=== PATIENT | male | born 1950 | race Caucasian/White ===

== ENCOUNTER → 2019-03-22 | Day surgery (SDC) | payer OTHER ==
[~2019-03-22] VITALS: Ht 177.8 cm; Wt 172.4 kg
[~2019-03-22] MED LIST: LISINOPRIL30 MG PO; TRIAMTERENE/HCT1 CA1 PO
--- NOTE | ~2019-03-22 | PROC ---
[address] [address] PROCEDURE REPORT Name: SHERIE HERNANDEZ Room: [facility].#: [id number] Admission: 03/22/19 Attend Phys: Josh Saunders MD Discharge: Date of : 54 Report #: [id number] THIS REPORT FOR: //name// For GI report, please see the Provation report in Perceptive 7 content. By: 06Medical Records Staff BRANDI /ZULLY
[2019-03-22 09:07] LABS: HEMATOCRIT 44.7 % (42.0-52.0); MCH 31.2 pg (26.0-34.0); MCHC 33.5 g/dL (28.0-37.0); MCV 93.3 fL (80.0-100.0); MPV 6.2 fl. (7.2-11.1); RBC 4.79 mil/uL (4.50-6.00); RDW-CV 13.4 % (10.5-14.5); WBC 6.7 thou/uL (4.0-11.0)
[2019-03-22 09:30] LABS: CREATININE 1.1 mg/dL (0.6-1.3); POTASSIUM 4.2 mmol/L (3.5-5.1)
[2019-03-22 09:34] LABS: ALBUMIN 3.4 g/dL (3.4-5.0); TOTAL BILIRUBIN 0.5 mg/dL (<0.1-1.0); TOTAL PROTEIN 7.4 g/dL (6.4-8.2)
--- NOTE | 2019-03-22 17:00 | EKG ---
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
--- NOTE | 2019-03-24 12:06 | PATH ---
[address] [address] [place] [address] PATHOLOGY RPT PROCEDURE Name: SHERIE MARTINEZ Room: [facility].#: [id number] Admission: 03/22/19 Date of : 54 Discharge: Report #: [id number] Path Case #: [id number] [facility] Accession Number: [id number] . 01 Material submitted: . PART A: colon - ASCENDING COLON. Modifiers: ascending PART B: colon - TRANSVERSE COLON POLYP. Modifiers: transverse . 01 Clinical history: . Personal history of colon polyps . 02 Diagnosis: A. Ascending colon: - Multiple fragments of tubular adenoma(s), negative for high-grade dysplasia. . B. Transverse colon polyp: - Tubular adenoma, negative for high-grade dysplasia. (PAVAN:lucy; 03/24/2019) S 03/24/2019 0939 Local . 02 Electronically signed: . Ashwin Camacho MD, Pathologist NPI- [id number] . 01 Gross description: . A. The specimen is received in formalin, labeled "Sherie Martinez, ascending colon". Received are multiple (greater than 10) segments of pale tamayo soft tissue ranging in size from 0.2 to 0.7 cm in maximum dimensions. The surgical margin of the larger segment is inked and the segment is bisected. The specimen is submitted entirely in cassettes A1 and A2, with the bisected segments embedded in cassette A2. . B. The specimen is received in formalin, labeled "Sherie Martinez, transverse colon polyp". Received are two segments of pale tamayo soft tissue ranging in size from 0.2 to 0.3 cm in maximum dimensions. The specimen is submitted entirely in cassette B1. ([facility]; 03/23/2019) QA/[facility] 03/24/2019 0938 Local . 02 Pathologist provided ICD-10: D12.2, D12.3 . 02 CPT . 995663, 255151 Specimen Comment: A courtesy copy of this report has been sent to [phone] Specimen Comment: [phone] [place] [address] PATHOLOGY RPT PROCEDURE Name: SHERIE MARTINEZ Room: [facility]#: [id number] Admission: 03/22/19 Date of : 54 Discharge: Report #: [id number] Path Case #: [id number] Specimen Comment: Report sent to / DR JOLLY Performed at: [address], [place], [place] [id number] MD Umesh Hansen MD Phone: [phone] Performed at: 02 [facility] [address], [place], [place] [id number] MD Ashwin Camacho MD Phone: [phone]
== END | disposition home or self-care (01) ==
LOC: M.SUR 08:19
PROVIDERS: Internal Medicine Gastroenterology
DX: Z12.11 Encounter for screening for malignant neoplasm of colon (principal); Z86.010 Personal history of colon polyps; D12.2 Benign neoplasm of ascending colon; D12.3 Benign neoplasm of transverse colon; K57.30 Diverticulosis of large intestine without perforation or abscess without bleeding; K64.8 Other hemorrhoids; I10 Essential (primary) hypertension; G47.30 Sleep apnea, unspecified; E66.01 Morbid (severe) obesity due to excess calories; Z98.890 Other specified postprocedural states; Z79.899 Other long term (current) drug therapy; Z68.43 Body mass index [BMI] 50.0-59.9, adult

== ENCOUNTER → 2019-12-05 | Outpatient (CLI) | payer OTHER ==
[~2019-12-05] MED LIST changes: +PROTONIX40 M1 PO
== END ==
LOC: M.LAB 12:58
PROVIDERS: ATTEND Internal Medicine
DX: Z11.59 Encounter for screening for other viral diseases (principal); R09.89 Other specified symptoms and signs involving the circulatory and respiratory systems; R13.10 Dysphagia, unspecified

== ENCOUNTER → 2019-12-08 | Day surgery (SDC) | payer OTHER ==
[2019-12-08 11:28] LABS: HEMATOCRIT 43.1 % (42.0-52.0); MCH 31.5 pg (26.0-34.0); MCHC 34.9 g/dL (28.0-37.0); MCV 90.3 fL (80.0-100.0); MPV 6.9 fl. (7.2-11.1); RBC 4.78 mil/uL (4.50-6.00); RDW-CV 13.8 % (10.5-14.5); WBC 6.3 thou/uL (4.0-11.0)
[2019-12-08 11:35] LABS: CALCIUM 8.5 mg/dL (8.5-10.1); CREATININE 1.1 mg/dL (0.6-1.3); POTASSIUM 3.9 mmol/L (3.5-5.1)
--- NOTE | 2019-12-09 10:43 | EKG ---
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
== END | disposition home or self-care (01) ==
LOC: M.SUR 05:35
PROVIDERS: ATTEND Internal Medicine Gastroenterology
DX: R13.10 Dysphagia, unspecified (principal); K44.9 Diaphragmatic hernia without obstruction or gangrene; K31.89 Other diseases of stomach and duodenum; Z79.899 Other long term (current) drug therapy; Z98.890 Other specified postprocedural states

== ENCOUNTER → 2019-12-12 | Outpatient (CLI) | payer OTHER | LOC: M.RAD 09:00 | PROVIDERS: ATTEND Internal Medicine Gastroenterology | DX: R13.10 Dysphagia, unspecified (principal) ==